=== PATIENT | male | born 1935 | race Caucasian/White ===

== ENCOUNTER 2018-06-25 09:30 | Inpatient (IN) ==
[2018-06-25] MEDS ORDERED: ONDANSETRON 4 MG/2 ML VIAL IV STA (10:22)
[2018-06-25] MEDS ORDERED: HYDROmorphone 2 MG/1 ML VIAL IV STA (10:22)
[2018-06-25 10:23] LABS: Basophils # 0.1 10*3/uL (0.0-0.2); Basophils % 0.6 % (0.0-0.8); Eosinophils # 0.2 10*3/uL (0.0-0.87); Eosinophils % 2.4 % (0.00-10.9); Hematocrit 24.6 VOL% (42.0-52.0); Hemoglobin 7.9 GM/DL (14.0-18.0); Immature Granulocytes % 0.5 %; Immature Granulocytes Absolute 0.04 #; Lymphocytes # 1.4 10*3/uL (1.4-4.0); Lymphocytes % 16.6 % (21.2-54.2); Mean Corpuscular HGB Conc 32.1 GM/DL (32-36); Mean Corpuscular Hemoglobin 32 PG (27-34); Mean Corpuscular Volume 98.8 FL (87-102); Monocytes # 0.9 10*3/uL (0.11-0.8); Monocytes % 10.1 % (1.7-12.7); Neutrophils # 5.9 10*3/uL (1.4-7.4); Neutrophils % 69.8 % (38.7-73.9); Platelet Count 145 T/CUMM (130-400); Red Blood Count 2.49 MC/CUMM (3.8-5.5); Red Cell Distribution Width 13.7 % (9.3-17.3); White Blood Count 8.4 T/CUMM (4-12)
[2018-06-25 10:35] LABS: INR 1.1; PT Patient Result 11.9 SECS; Partial Thromboplastin Time 26.9 SECS (0-40)
[2018-06-25 10:39] LABS: Amorphous Crystals,Urine Occasional /HPF (Few); Apearance,Urine CLEAR (Clear); Bacteria,Urine Occasional /HPF (Few); Bilirubin,Urine Negative (Negative); Blood, Urine Small mg/dL (Negative); Glucose,Urine (UA) Negative (Negative); Ketones,Urine Negative (Negative); Mucus,Urine Occasional /LPF (Occasional); Nitrite,Urine Negative (Negative); Protein,Urine Negative; RBC,Urine 3 /HPF (0-4); Squamous Epithelial Cell,Urine Occasional /HPF (0-10); Urine Color Yellow (Yellow); Urine Specific Gravity 1.012 (1.001-1.035); Urine Urobilinogen < 2.0 EU/DL (0.2-1.0); WBC,Urine 1 /HPF (0-6)
[2018-06-25] MEDS ORDERED: SODIUM CHLORIDE 0.9% 1,000 ML IV PRN (10:46)
[2018-06-25 10:50] LABS: Calcium 8.4 MG/DL (8.5-10.1); Osmolality,Calculated 290.3 MOS/KG (273-304); Potassium 4.6 MMOL/L (3.5-5.1)
[2018-06-25] MEDS ORDERED: HYDROmorphone 2 MG/1 ML VIAL IV PRN (10:55)
[2018-06-25] MEDS ORDERED: MAGNESIUM HYDROXIDE SUSP 30 ML UDCUP PO PRN ×2 (10:55→14:11)
[2018-06-25] MEDS ORDERED: ceFAZolin 1,000 MG in SYRINGE 1 EACH IV ONE (11:23)
[2018-06-25] MEDS ORDERED: ceFAZolin 1,000 MG VIAL ONE (13:01)
[2018-06-25] MEDS ORDERED: MORPHINE 4 MG/1 ML VIAL IV PRN (14:11)
[2018-06-25] MEDS ORDERED: diphenhydrAMINE CAP 25 MG CAPSULE PO PRN (14:11)
[2018-06-25] MEDS ORDERED: ONDANSETRON 4 MG/2 ML VIAL IV PRN (14:11)
[2018-06-25] MEDS ORDERED: PROMETHAZINE 25 MG/1 ML VIAL IM PRN (14:11)
[2018-06-25] MEDS: SODIUM CHLORIDE 0.9% 1,000 ML IV SCH (14:20)
[2018-06-25] MEDS ORDERED: DEXAMETHASONE 10 MG/1 ML VIAL ONE (14:29)
[2018-06-25] MEDS ORDERED: fentaNYL 100 MCG/2 ML VIAL ONE (14:29)
[2018-06-25] MEDS ORDERED: SEVOFLURANE 1 UNIT/15 MINUTE INH ONE (14:29)
[2018-06-25] MEDS ORDERED: ONDANSETRON 4 MG/2 ML VIAL ONE (14:30)
[2018-06-25] MEDS ORDERED: ETOMIDATE 40 MG/20 ML VIAL IV ONE (14:30)
[2018-06-25] MEDS ORDERED: GLYCOPYRROLATE 0.4 MG/2 ML VIAL ONE (14:30)
[2018-06-25] MEDS ORDERED: ROCURONIUM 100 MG/10 ML VIAL IV ONE (14:30)
[2018-06-25] MEDS ORDERED: NEOSTIGMINE 10 MG/10 ML VIAL ONE (14:30)
[2018-06-25] MEDS ORDERED: PHENYLEPHRINE 1 MG/10 ML SYRINGE IV ONE (14:30)
[2018-06-25] MEDS: ceFAZolin 1,000 MG in SYRINGE 1 EACH IV SCH (22:04)
[2018-06-26] MEDS: ceFAZolin 1,000 MG in SYRINGE 1 EACH IV SCH ×2 (05:13→15:47)
[2018-06-26] MEDS: SODIUM CHLORIDE 0.9% 1,000 ML IV SCH ×3 (05:15→18:24)
[2018-06-26 06:08] LABS: Basophils % 0.2 % (0.0-0.8); Hematocrit 26.5 VOL% (42.0-52.0); Hemoglobin 8.6 GM/DL (14.0-18.0); Immature Granulocytes % 0.4 %; Immature Granulocytes Absolute 0.04 #; Lymphocytes # 1.2 10*3/uL (1.4-4.0); Lymphocytes % 11.8 % (21.2-54.2); Mean Corpuscular HGB Conc 32.5 GM/DL (32-36); Mean Corpuscular Hemoglobin 32 PG (27-34); Mean Corpuscular Volume 97.4 FL (87-102); Mean Platelet Volume 11.1 FL (9.6-12.0); Monocytes # 0.9 10*3/uL (0.11-0.8); Monocytes % 9.3 % (1.7-12.7); Neutrophils # 7.8 10*3/uL (1.4-7.4); Neutrophils % 78.3 % (38.7-73.9); Platelet Count 126 T/CUMM (130-400); Red Blood Count 2.72 MC/CUMM (3.8-5.5); Red Cell Distribution Width 14.7 % (9.3-17.3)
[2018-06-26 06:22] LABS: Calcium 8.1 MG/DL (8.5-10.1)
[2018-06-26 06:23] LABS: Calcium 8.2 MG/DL (8.5-10.1); Osmolality,Calculated 293.1 MOS/KG (273-304); Potassium 4.9 MMOL/L (3.5-5.1)
[2018-06-26] MEDS: ASPIRIN EC 81 MG TABLET PO SCH ×2 (09:46→11:38)
[2018-06-26] MEDS: hydrOXYzine HCL 25 MG TABLET PO SCH ×2 (09:53→11:39)
[2018-06-26] MEDS: MULTIVITAMIN (CENTRUM) TABLET PO SCH ×2 (09:53→11:39)
[2018-06-26] MEDS: TAMSULOSIN 0.4 MG CAPSULE PO SCH ×2 (09:53→11:39)
[2018-06-26] MEDS: FERROUS SULFATE 325 MG TABLET PO SCH ×2 (09:53→11:39)
[2018-06-27 05:44] LABS: Basophils # 0.1 10*3/uL (0.0-0.2); Basophils % 0.6 % (0.0-0.8); Eosinophils # 0.4 10*3/uL (0.0-0.87); Hematocrit 25.3 VOL% (42.0-52.0); Hemoglobin 8.2 GM/DL (14.0-18.0); Immature Granulocytes % 0.3 %; Immature Granulocytes Absolute 0.03 #; Lymphocytes # 1.8 10*3/uL (1.4-4.0); Lymphocytes % 18.7 % (21.2-54.2); Mean Corpuscular HGB Conc 32.4 GM/DL (32-36); Mean Corpuscular Hemoglobin 32 PG (27-34); Mean Corpuscular Volume 98.4 FL (87-102); Mean Platelet Volume 10.6 FL (9.6-12.0); Monocytes # 0.8 10*3/uL (0.11-0.8); Monocytes % 8.5 % (1.7-12.7); Neutrophils # 6.5 10*3/uL (1.4-7.4); Neutrophils % 67.9 % (38.7-73.9); Platelet Count 129 T/CUMM (130-400); Red Blood Count 2.57 MC/CUMM (3.8-5.5); Red Cell Distribution Width 14.6 % (9.3-17.3); White Blood Count 9.6 T/CUMM (4-12)
[2018-06-27 06:13] LABS: Osmolality,Calculated 293.1 MOS/KG (273-304); Potassium 5.2 MMOL/L (3.5-5.1)
[2018-06-27] MEDS: hydrOXYzine HCL 25 MG TABLET PO SCH (10:06)
[2018-06-27] MEDS: FERROUS SULFATE 325 MG TABLET PO SCH (10:06)
[2018-06-27] MEDS: TAMSULOSIN 0.4 MG CAPSULE PO SCH (10:06)
[2018-06-27] MEDS: ASPIRIN EC 81 MG TABLET PO SCH (10:06)
[2018-06-27] MEDS: MULTIVITAMIN (CENTRUM) TABLET PO SCH (10:06)
[2018-06-27] MEDS: SODIUM CHLORIDE 0.9% 1,000 ML IV SCH ×2 (11:47→14:35)
[2018-06-28] MEDS: SODIUM CHLORIDE 0.9% 1,000 ML IV SCH ×2 (03:39→09:33)
[2018-06-28 05:33] LABS: Basophils # 0.1 10*3/uL (0.0-0.2); Basophils % 0.9 % (0.0-0.8); Eosinophils # 0.5 10*3/uL (0.0-0.87); Eosinophils % 4.6 % (0.00-10.9); Hematocrit 26.9 VOL% (42.0-52.0); Hemoglobin 8.6 GM/DL (14.0-18.0); Immature Granulocytes % 0.5 %; Immature Granulocytes Absolute 0.05 #; Lymphocytes # 1.6 10*3/uL (1.4-4.0); Lymphocytes % 15.3 % (21.2-54.2); Mean Corpuscular Hemoglobin 31 PG (27-34); Mean Corpuscular Volume 97.8 FL (87-102); Mean Platelet Volume 10.2 FL (9.6-12.0); Monocytes % 9.4 % (1.7-12.7); Neutrophils # 7.1 10*3/uL (1.4-7.4); Neutrophils % 69.3 % (38.7-73.9); Platelet Count 159 T/CUMM (130-400); Red Blood Count 2.75 MC/CUMM (3.8-5.5); Red Cell Distribution Width 14.1 % (9.3-17.3); White Blood Count 10.2 T/CUMM (4-12)
[2018-06-28 06:04] LABS: Calcium 8.4 MG/DL (8.5-10.1); Osmolality,Calculated 290.3 MOS/KG (273-304); Potassium 4.8 MMOL/L (3.5-5.1)
[2018-06-28] MEDS: ASPIRIN EC 81 MG TABLET PO SCH (09:40)
[2018-06-28] MEDS: hydrOXYzine HCL 25 MG TABLET PO SCH (09:40)
[2018-06-28] MEDS: MULTIVITAMIN (CENTRUM) TABLET PO SCH (09:40)
[2018-06-28] MEDS: TAMSULOSIN 0.4 MG CAPSULE PO SCH (09:40)
[2018-06-28] MEDS: FERROUS SULFATE 325 MG TABLET PO SCH (09:40)
[2018-06-28] MEDS: DEXTROSE 5% NACL 0.9% 1,000 ML IV SCH ×3 (11:50→19:17)
[2018-06-29] MEDS: DEXTROSE 5% NACL 0.9% 1,000 ML IV SCH ×2 (03:33→12:25)
[2018-06-29 05:58] LABS: Basophils # 0.1 10*3/uL (0.0-0.2); Basophils % 0.6 % (0.0-0.8); Eosinophils # 0.6 10*3/uL (0.0-0.87); Eosinophils % 7.9 % (0.00-10.9); Hematocrit 25.4 VOL% (42.0-52.0); Hemoglobin 8.1 GM/DL (14.0-18.0); Immature Granulocytes % 0.5 %; Immature Granulocytes Absolute 0.04 #; Lymphocytes # 1.4 10*3/uL (1.4-4.0); Lymphocytes % 17.4 % (21.2-54.2); Mean Corpuscular HGB Conc 31.9 GM/DL (32-36); Mean Corpuscular Hemoglobin 31 PG (27-34); Mean Corpuscular Volume 98.1 FL (87-102); Mean Platelet Volume 10.7 FL (9.6-12.0); Monocytes # 0.7 10*3/uL (0.11-0.8); Monocytes % 9.2 % (1.7-12.7); Neutrophils % 64.4 % (38.7-73.9); Platelet Count 164 T/CUMM (130-400); Red Blood Count 2.59 MC/CUMM (3.8-5.5); Red Cell Distribution Width 13.9 % (9.3-17.3); White Blood Count 7.8 T/CUMM (4-12)
[2018-06-29 06:22] LABS: Albumin 2.5 G/DL (3.4-5.0); Bilirubin,Total 0.8 MG/DL (0.2-1.0); Osmolality,Calculated 290.1 MOS/KG (273-304); Potassium 4.1 MMOL/L (3.5-5.1)
[2018-06-29] MEDS: MULTIVITAMIN (CENTRUM) TABLET PO SCH (09:22)
[2018-06-29] MEDS: FERROUS SULFATE 325 MG TABLET PO SCH (09:22)
[2018-06-29] MEDS: hydrOXYzine HCL 25 MG TABLET PO SCH (09:22)
[2018-06-29] MEDS: TAMSULOSIN 0.4 MG CAPSULE PO SCH (09:22)
[2018-06-29] MEDS: ASPIRIN EC 81 MG TABLET PO SCH (09:22)
[2018-06-30] MEDS: DEXTROSE 5% NACL 0.9% 1,000 ML IV SCH ×5 (04:15→21:06)
[2018-06-30 06:00] LABS: Basophils # 0.1 10*3/uL (0.0-0.2); Basophils % 0.6 % (0.0-0.8); Eosinophils # 0.8 10*3/uL (0.0-0.87); Eosinophils % 8.9 % (0.00-10.9); Hematocrit 24.8 VOL% (42.0-52.0); Hemoglobin 7.9 GM/DL (14.0-18.0); Immature Granulocytes % 0.3 %; Immature Granulocytes Absolute 0.03 #; Lymphocytes # 1.6 10*3/uL (1.4-4.0); Lymphocytes % 18.2 % (21.2-54.2); Mean Corpuscular HGB Conc 31.9 GM/DL (32-36); Mean Corpuscular Hemoglobin 32 PG (27-34); Mean Corpuscular Volume 100.4 FL (87-102); Mean Platelet Volume 10.1 FL (9.6-12.0); Monocytes # 0.9 10*3/uL (0.11-0.8); Neutrophils # 5.4 10*3/uL (1.4-7.4); Platelet Count 171 T/CUMM (130-400); Red Blood Count 2.47 MC/CUMM (3.8-5.5); Red Cell Distribution Width 13.8 % (9.3-17.3); White Blood Count 8.7 T/CUMM (4-12)
[2018-06-30 06:30] LABS: Calcium 7.6 MG/DL (8.5-10.1); Osmolality,Calculated 287.1 MOS/KG (273-304)
[2018-06-30] MEDS: MULTIVITAMIN (CENTRUM) TABLET PO SCH (09:30)
[2018-06-30] MEDS: TAMSULOSIN 0.4 MG CAPSULE PO SCH (09:30)
[2018-06-30] MEDS: hydrOXYzine HCL 25 MG TABLET PO SCH (09:30)
[2018-06-30] MEDS: FERROUS SULFATE 325 MG TABLET PO SCH (09:30)
[2018-06-30] MEDS: ASPIRIN EC 81 MG TABLET PO SCH (09:30)
[2018-06-30 18:23] LABS: Apearance,Urine CLEAR (Clear); Bilirubin,Urine Negative (Negative); Blood, Urine Moderate mg/dL (Negative); Glucose,Urine (UA) Negative (Negative); Ketones,Urine Negative (Negative); Mucus,Urine Occasional /LPF (Occasional); Nitrite,Urine Negative (Negative); Protein,Urine Negative; RBC,Urine 59 /HPF (0-4); Squamous Epithelial Cell,Urine Occasional /HPF (0-10); Urine Color Yellow (Yellow); Urine Specific Gravity 1.009 (1.001-1.035); Urine Urobilinogen < 2.0 EU/DL (0.2-1.0); WBC,Urine <1 /HPF (0-6)
[2018-07-01 05:06] LABS: Basophils # 0.1 10*3/uL (0.0-0.2); Basophils % 0.5 % (0.0-0.8); Eosinophils # 0.8 10*3/uL (0.0-0.87); Eosinophils % 7.8 % (0.00-10.9); Hematocrit 24.1 VOL% (42.0-52.0); Hemoglobin 7.5 GM/DL (14.0-18.0); Immature Granulocytes % 0.4 %; Immature Granulocytes Absolute 0.04 #; Lymphocytes # 1.9 10*3/uL (1.4-4.0); Lymphocytes % 18.6 % (21.2-54.2); Mean Corpuscular HGB Conc 31.1 GM/DL (32-36); Mean Corpuscular Hemoglobin 31 PG (27-34); Mean Corpuscular Volume 99.2 FL (87-102); Mean Platelet Volume 10.2 FL (9.6-12.0); Monocytes # 1.1 10*3/uL (0.11-0.8); Monocytes % 10.8 % (1.7-12.7); Neutrophils # 6.3 10*3/uL (1.4-7.4); Neutrophils % 61.9 % (38.7-73.9); Platelet Count 183 T/CUMM (130-400); Red Blood Count 2.43 MC/CUMM (3.8-5.5); Red Cell Distribution Width 13.8 % (9.3-17.3); White Blood Count 10.2 T/CUMM (4-12)
[2018-07-01 05:29] LABS: Calcium 7.8 MG/DL (8.5-10.1); Osmolality,Calculated 289.8 MOS/KG (273-304); Potassium 4.1 MMOL/L (3.5-5.1)
[2018-07-01] MEDS: DEXTROSE 5% NACL 0.9% 1,000 ML IV SCH ×3 (05:54→23:30)
[2018-07-01] MEDS: MULTIVITAMIN (CENTRUM) TABLET PO SCH (08:50)
[2018-07-01] MEDS: FERROUS SULFATE 325 MG TABLET PO SCH (08:50)
[2018-07-01] MEDS: ASPIRIN EC 81 MG TABLET PO SCH (08:50)
[2018-07-01] MEDS: hydrOXYzine HCL 25 MG TABLET PO SCH (08:50)
[2018-07-01] MEDS: TAMSULOSIN 0.4 MG CAPSULE PO SCH (08:50)
[2018-07-02] MEDS: DEXTROSE 5% NACL 0.9% 1,000 ML IV SCH ×2 (05:32→20:37)
[2018-07-02 06:46] LABS: Basophils # 0.1 10*3/uL (0.0-0.2); Basophils % 0.6 % (0.0-0.8); Eosinophils # 0.9 10*3/uL (0.0-0.87); Eosinophils % 9.5 % (0.00-10.9); Hematocrit 23.3 VOL% (42.0-52.0); Hemoglobin 7.2 GM/DL (14.0-18.0); Immature Granulocytes % 0.5 %; Immature Granulocytes Absolute 0.05 #; Lymphocytes # 1.9 10*3/uL (1.4-4.0); Mean Corpuscular HGB Conc 30.9 GM/DL (32-36); Mean Corpuscular Hemoglobin 31 PG (27-34); Monocytes # 0.9 10*3/uL (0.11-0.8); Monocytes % 9.7 % (1.7-12.7); Neutrophils # 5.5 10*3/uL (1.4-7.4); Neutrophils % 59.7 % (38.7-73.9); Platelet Count 199 T/CUMM (130-400); Red Blood Count 2.33 MC/CUMM (3.8-5.5); Red Cell Distribution Width 14.1 % (9.3-17.3); White Blood Count 9.3 T/CUMM (4-12)
[2018-07-02 07:17] LABS: Calcium 7.9 MG/DL (8.5-10.1); Potassium 4.3 MMOL/L (3.5-5.1)
[2018-07-02] MEDS: FERROUS SULFATE 325 MG TABLET PO SCH (09:08)
[2018-07-02] MEDS: MULTIVITAMIN (CENTRUM) TABLET PO SCH (09:08)
[2018-07-02] MEDS: ACETAMINOPHEN 325 MG TABLET PO PRN ×2 (09:09→17:55)
[2018-07-02] MEDS: ASPIRIN EC 81 MG TABLET PO SCH (09:11)
[2018-07-02] MEDS: hydrOXYzine HCL 25 MG TABLET PO SCH (09:11)
[2018-07-02] MEDS: TAMSULOSIN 0.4 MG CAPSULE PO SCH (09:11)
[2018-07-02] MEDS ORDERED: TUBERCULIN SKIN TEST 0.1 ML SYRINGE INTRADERM ONE (11:00)
[2018-07-02 11:10] LABS: Basophils # 0.1 10*3/uL (0.0-0.2); Basophils % 0.5 % (0.0-0.8); Eosinophils # 0.9 10*3/uL (0.0-0.87); Eosinophils % 9.4 % (0.00-10.9); Hematocrit 23.1 VOL% (42.0-52.0); Immature Granulocytes % 0.4 %; Immature Granulocytes Absolute 0.04 #; Lymphocytes # 1.6 10*3/uL (1.4-4.0); Mean Corpuscular HGB Conc 30.3 GM/DL (32-36); Mean Corpuscular Hemoglobin 31 PG (27-34); Mean Corpuscular Volume 103.1 FL (87-102); Mean Platelet Volume 9.8 FL (9.6-12.0); Monocytes # 0.9 10*3/uL (0.11-0.8); Monocytes % 9.2 % (1.7-12.7); Neutrophils # 5.9 10*3/uL (1.4-7.4); Neutrophils % 63.5 % (38.7-73.9); Platelet Count 197 T/CUMM (130-400); Red Blood Count 2.24 MC/CUMM (3.8-5.5); White Blood Count 9.3 T/CUMM (4-12)
[2018-07-02 12:16] LABS: Sedimentation Rate-Westergren 90 MM/HR (0-20)
[2018-07-02 13:21] LABS: Folate 15.8 NG/ML (5.4-24.0); Vitamin B12 647 PG/ML (211-911)
[2018-07-03 04:42] LABS: Basophils # 0.1 10*3/uL (0.0-0.2); Basophils % 0.7 % (0.0-0.8); Eosinophils # 0.9 10*3/uL (0.0-0.87); Eosinophils % 8.1 % (0.00-10.9); Hematocrit 24.8 VOL% (42.0-52.0); Hemoglobin 7.8 GM/DL (14.0-18.0); Immature Granulocytes % 0.4 %; Immature Granulocytes Absolute 0.05 #; Lymphocytes % 17.7 % (21.2-54.2); Mean Corpuscular HGB Conc 31.5 GM/DL (32-36); Mean Corpuscular Hemoglobin 31 PG (27-34); Mean Corpuscular Volume 99.6 FL (87-102); Monocytes # 0.9 10*3/uL (0.11-0.8); Monocytes % 8.3 % (1.7-12.7); Neutrophils # 7.3 10*3/uL (1.4-7.4); Neutrophils % 64.8 % (38.7-73.9); Platelet Count 240 T/CUMM (130-400); Red Blood Count 2.49 MC/CUMM (3.8-5.5); Red Cell Distribution Width 13.7 % (9.3-17.3); White Blood Count 11.3 T/CUMM (4-12)
[2018-07-03 05:00] LABS: Osmolality,Calculated 282.3 MOS/KG (273-304); Potassium 4.2 MMOL/L (3.5-5.1)
[2018-07-03] MEDS: TAMSULOSIN 0.4 MG CAPSULE PO SCH (11:26)
[2018-07-03] MEDS: FERROUS SULFATE 325 MG TABLET PO SCH (11:26)
[2018-07-03] MEDS: MULTIVITAMIN (CENTRUM) TABLET PO SCH (11:26)
[2018-07-03] MEDS: ACETAMINOPHEN 325 MG TABLET PO PRN (11:26)
[2018-07-03] MEDS: hydrOXYzine HCL 25 MG TABLET PO SCH (11:26)
[2018-07-03] MEDS: ASPIRIN EC 81 MG TABLET PO SCH (11:27)
[2018-07-04 06:17] LABS: Basophils % 0.4 % (0.0-0.8); Eosinophils # 0.8 10*3/uL (0.0-0.87); Eosinophils % 8.8 % (0.00-10.9); Hematocrit 23.5 VOL% (42.0-52.0); Hemoglobin 7.4 GM/DL (14.0-18.0); Immature Granulocytes % 0.5 %; Immature Granulocytes Absolute 0.05 #; Mean Corpuscular HGB Conc 31.5 GM/DL (32-36); Mean Corpuscular Hemoglobin 31 PG (27-34); Mean Corpuscular Volume 98.3 FL (87-102); Mean Platelet Volume 10.2 FL (9.6-12.0); Monocytes # 0.8 10*3/uL (0.11-0.8); Monocytes % 8.3 % (1.7-12.7); Neutrophils # 5.7 10*3/uL (1.4-7.4); Platelet Count 254 T/CUMM (130-400); Red Blood Count 2.39 MC/CUMM (3.8-5.5); Red Cell Distribution Width 13.6 % (9.3-17.3); White Blood Count 9.4 T/CUMM (4-12)
[2018-07-04] MEDS: TAMSULOSIN 0.4 MG CAPSULE PO SCH (09:02)
[2018-07-04] MEDS: ASPIRIN EC 81 MG TABLET PO SCH (09:02)
[2018-07-04] MEDS: MULTIVITAMIN (CENTRUM) TABLET PO SCH (09:03)
[2018-07-04] MEDS: FERROUS SULFATE 325 MG TABLET PO SCH (09:03)
[2018-07-04] MEDS: hydrOXYzine HCL 25 MG TABLET PO SCH (09:03)
[2018-07-04] MEDS: DEXTROSE 5% NACL 0.9% 1,000 ML IV SCH ×2 (14:34→14:35)
[2018-07-05] MEDS: hydrOXYzine HCL 25 MG TABLET PO SCH (09:19)
[2018-07-05] MEDS: ASPIRIN EC 81 MG TABLET PO SCH (09:19)
[2018-07-05] MEDS: FERROUS SULFATE 325 MG TABLET PO SCH (09:20)
[2018-07-05] MEDS: MULTIVITAMIN (CENTRUM) TABLET PO SCH (09:20)
[2018-07-05] MEDS: TAMSULOSIN 0.4 MG CAPSULE PO SCH (09:20)
[2018-07-05 09:43] LABS: Hemoglobin A1 (Alkaline) 97.1 % (96.5-98.5); Hemoglobin A2 (Alkaline) 2.9 % (1.5-3.5)
[2018-07-06] MEDS: ASPIRIN EC 81 MG TABLET PO SCH (09:03)
[2018-07-06] MEDS: FERROUS SULFATE 325 MG TABLET PO SCH (09:03)
[2018-07-06] MEDS: TAMSULOSIN 0.4 MG CAPSULE PO SCH (09:03)
[2018-07-06] MEDS: hydrOXYzine HCL 25 MG TABLET PO SCH (09:03)
[2018-07-06] MEDS: MULTIVITAMIN (CENTRUM) TABLET PO SCH (09:03)
[2018-07-06 11:50] VITALS: BP 112/56
== END 2018-07-06 11:55 | disposition swing bed (61) | DRG 481 ==
LOC: EDUNIT# → EDBD → N.ED 09:30 → N.EDINP 10:55 → N.3E 12:55
PROVIDERS: ADMIT Family Medicine; ATTEND Family Medicine